=== PATIENT | female | born 1950 | race Hispanic/Latino ===

== ENCOUNTER 2016-07-31 13:21 | Outpatient (CLI) | payer MEDICARE ==
--- NOTE | 2016-08-01 10:16 | Magnetic Resonance Report ---
MRI BRAIN WITHOUT AND WITH CONTRAST: 07/31/16 00:00:00 CLINICAL: History of breast cancer. Memory loss. TECHNIQUE: Axial diffusion, T1, FLAIR, gradient echo T2*, and coronal and axial T2 and sagittal T1 plus coronal and axial postcontrast T1 sequences on a 1.5 Monika magnet. 12.0 cc of Multihance was injected intravenously for the contrast portion of the exam. Consent was obtained prior to the administration of contrast. FINDINGS: The ventricles are normal in size. Mild global sulcal enlargement for age. Mild bilateral medial temporal lobe atrophy and multiple bilateral hippocampal cavities. However, the medial temporal lobe atrophy is commensurate with the overall sulcal enlargement. No restricted diffusion. Moderate bilateral multifocal deep white matter and subcortical white matter hyperintensities on FLAIR and T2. No mass or enhancing lesion. No hemorrhage, edema or extra-axial collection. Normal pituitary and optic chiasm. The brainstem and cerebellum are normal. Intact vascular flow voids. The orbits, sinuses and soft tissues are normal. Normal calvarium and skull base. IMPRESSION: 1. No evidence of metastatic disease. 2. Mild global cortical atrophy, mild bilateral medial temporal lobe atrophy and bilateral hippocampal cavities. These are nonspecific changes which may or may not be related to dementia. 3. Moderate chronic white matter microangiopathy.
== END 2016-07-31 13:22 | disposition home or self-care (01) ==
LOC: SPVIMAG 13:21
PROVIDERS: ATTEND Internal Medicine
DX: I73.9 Peripheral vascular disease, unspecified (principal); G31.89 Other specified degenerative diseases of nervous system; Z85.3 Personal history of malignant neoplasm of breast; R41.3 Other amnesia
CPT/HCPCS: 70553; 82962; A9577